=== PATIENT | male | born 1975 | race Two or more races ===

== ENCOUNTER 2017-06-13 17:38 | Emergency (ER) | payer SELFPAY, OTHER ==
[~2017-06-13] VITALS: Ht 175.3 cm; Wt 70.3 kg
[2017-06-13 18:23] VITALS: BP 119/79
[2017-06-13 18:29] VITALS: BP 119/79
[2017-06-13] MEDS ORDERED: Methocarbamol 500mg tab ORAL ONE (18:30)
--- NOTE | 2017-06-13 18:32 | Emergency Room Report ---
History of Present Illness General Chief Complaint: Medical Clearance Source: Patient Present Illness HPI 41year-old male patient presents to ER brought in by police complaining of low back pain. Patient reports that he was taken down to the ground while being placed in police custody and slammed his back against the ground. Patient denies loss of consciousness. Patient denies vomiting, vision problems, headache. Patient reports pain with range of motion of back. Patient reports able to ambulate. Patient reports "I need pain medication". patient denies fever, chest pain, shortness of breath bowel or bladder problems, radiation of pain to her legs. denies abdominal pain. Denies history of cancer or drug use. Allergies: Coded Allergies: No Known Allergies (Unverified , 06/13/17) Patient History Past Medical History: see triage record Reviewed Nursing Documentation: PMH: Agreed; PSxH: Agreed Nursing Documentation-PMH Past Medical History: No History, Except For Hx Seizures: No - CHRONIC BACK PAIN Review of Systems All Other Systems: negative except mentioned in HPI Physical Exam Vital Signs Date Time Temp Pulse Resp B/P (MAP) Pulse Ox O2 Delivery O2 Flow Rate FiO2 06/13/17 18:06 98.3 101 20 119/79 99 Room Air 98.2 Sp02 EP Interpretation: reviewed, normal General Appearance: well appearing, no apparent distress, alert, GCS 15, non- toxic Head: normocephalic, atraumatic, other - negative Hopkins sign, negative Raccoon eyes Eyes: bilateral eye normal inspection, bilateral eye PERRL ENT: hearing grossly normal, normal pharynx, no angioedema, normal voice, uvula midline, moist mucus membranes Neck: full range of motion Respiratory: lungs clear, normal breath sounds, no rhonchi, no respiratory distress, no accessory muscle use, no wheezing, speaking full sentences Cardiovascular #1: regular rate, rhythm, no edema Musculoskeletal: back normal, digits/nails normal, gait/station normal, normal range of motion, non-tender, other - no bony depression, no stepoff, no erythema , no edema, no ecchymosis, tender - left lumbosacral area Neurologic: alert, oriented x3, responsive, motor strength/tone normal, sensory intact Psychiatric: mood/affect normal Skin: no rash Lymphatic: no adenopathy Medical Decision Making PA Attestation Dr. Spann is my supervising Physician whom patient management has been discussed with. Diagnostic Impression: Primary Impression: Back pain Additional Impression: Medical clearance for incarceration ER Course Pt. presents to the ED requesting medical clearance for booking. Multiple differentials considered. Patient Vitals Signs WNL, patient is afebrile. PE benign. No skull depression, lungs clear to auscultation, no abdominal TTP. Patient not suicidal or homicidal at this time. Patient in no acute distress, nontoxic appearing, breathing without difficulty. ORDERS: none required at this time, the diagnosis is clinical ER COURSE: Provided with Tylenol and Robaxin in ER. patient requesting CT of spine. Patient states wants admission to treat pain. Informed patient CT will not treat pain symptoms Physical exam shows no bony depression no step-off no bruising or tenderness to palpation over spine, patient does not require imaging at this time. No tenderness to palpation with distraction. Patient is okay for discharge to police custody. Do not believe patient is a danger to himself or others. Patient ambulating without difficulty, patient observed have full range of motion of back, sitting and slouching in chair. DISCHARGE: At this time pt. is stable for d/c to police custody. Will provide printed patient care instructions, and any necessary prescriptions. Care plan and follow up instructions have been discussed with the patient prior to discharge. - Please note that this Emergency Department Report was dictated using [employer] web developer technology software, occasionally this can lead to erroneous entry secondary to interpretation by the dictation equipment. Last Vital Signs Date Time Temp Pulse Resp B/P (MAP) Pulse Ox O2 Delivery O2 Flow Rate FiO2 06/13/17 18:06 98.3 101 20 119/79 99 Room Air 98.2 Disposition: D/C TO LAW ENFORCEMENT IN CUST Condition: Stable Patient Instructions: Back Pain, Adult, [id number] Additional Instructions: Patient instructed to follow up with primary care provider and discuss further referral to orthopedics. Discuss further imaging at that time. Patient instructed on rest, ice and heat for pain symptoms. Take medications as directed. Patient questions asked and answered. ER precautions given, patient instructed to return to ER immediately for any new or worsening of symptoms. Pj Good Jun 13, 2017 18:32
== END 2017-06-13 18:33 ==
LOC: EMR 18:33
DX: M54.5 Low back pain (principal); G89.29 Other chronic pain
CPT/HCPCS: 99283

== ENCOUNTER 2019-09-06 12:08 | Emergency (ER) | payer SELFPAY ==
[~2019-09-06] VITALS: Ht 175.3 cm; Wt 66.7 kg
[2019-09-06 12:08] VITALS: BP 122/90
[~2019-09-06 12:08] MED LIST: QUETIAPINE FUM200 MG ORAL; TRAZODONE HCL150 MG ORAL
[2019-09-06] MEDS ORDERED: QUEtiapine 200mg tab ORAL STA (12:20)
[2019-09-06] MEDS ORDERED: LORazepam 0.5mg tab ORAL ONE (12:30)
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
[2019-09-06] MEDS ORDERED: ATIVAN0.5 MG ORAL ×2 (14:38→14:45)
[2019-09-06] MEDS ORDERED: SEROQUEL200 MG ORAL ×2 (14:38→14:45)
[2019-09-06] MEDS ORDERED: TRAZODONE HCL100 MG ORAL ×2 (14:38→14:45)
[2019-09-06 16:16] VITALS: BP 122/90
== END 2019-09-06 16:12 | disposition home or self-care (01) ==
LOC: EDBD 12:08 → EMR 12:43
DX: F31.9 Bipolar disorder, unspecified (principal); Z91.14 Patient's other noncompliance with medication regimen; F17.200 Nicotine dependence, unspecified, uncomplicated
CPT/HCPCS: 99284

== ENCOUNTER 2019-09-12 13:42 | Emergency (ER) | payer SELFPAY ==
[~2019-09-12] VITALS: Ht 175.3 cm; Wt 66.7 kg
[~2019-09-12 13:42] MED LIST changes: +ATIVAN0.5 MG ORAL; +SEROQUEL200 MG ORAL; +TRAZODONE HCL100 MG ORAL
[2019-09-12 13:55] VITALS: BP 105/56
[2019-09-12] MEDS ORDERED: SEROQUEL200 MG ORAL (14:02)
[2019-09-12] MEDS ORDERED: ATIVAN1 MG ORAL ×2 (14:03→14:35)
[2019-09-12] MEDS ORDERED: LORazepam 1mg tab ORAL ONE (14:30)
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
[2019-09-12 15:02] VITALS: BP 105/56
== END 2019-09-12 14:57 | disposition home or self-care (01) ==
LOC: EMR 14:01
DX: Z76.0 Encounter for issue of repeat prescription (principal); I10 Essential (primary) hypertension; F41.9 Anxiety disorder, unspecified; F32.9 Major depressive disorder, single episode, unspecified
CPT/HCPCS: 99282